=== PATIENT | male | born 1960 | race Caucasian/White ===

== ENCOUNTER 2022-03-20 09:33 | Emergency (ER) | payer SELFPAY ==
[~2022-03-20] VITALS: Ht 170.2 cm; Wt 72.7 kg
[2022-03-20 09:42] VITALS: BP 148/92; TEMP 97.8
[2022-03-20] MEDS ORDERED: PERCOCET 325 MG1 TA2 PO (10:32)
[2022-03-20] MEDS ORDERED: MOTRIN 800800 MG/TAB PO (10:32)
[2022-03-20 10:50] VITALS: PULSE 94
== END 2022-03-20 10:50 | disposition home or self-care (01) ==
LOC: COL.ER 09:33
DX: L72.3 Sebaceous cyst (principal); F17.200 Nicotine dependence, unspecified, uncomplicated; Z28.310 Unvaccinated for COVID-19

== ENCOUNTER 2022-04-04 07:31 | Day surgery (SDC) | payer SELFPAY ==
[~2022-04-04] VITALS: Ht 170.2 cm; Wt 68.6 kg
[~2022-04-04 07:31] MED LIST: MOTRIN 800800 MG/TAB PO; PERCOCET 325 MG1 TA2 PO
[2022-04-04 08:28] VITALS: BP 115/87; PULSE 77; TEMP 98.6
[2022-04-04 10:03] VITALS: BP 138/76; PULSE 68; TEMP 97.5
[2022-04-04 10:20] VITALS: BP 132/74; PULSE 69
[2022-04-04 10:35] VITALS: BP 130/68; PULSE 65
[2022-04-04 10:50] VITALS: BP 136/72; PULSE 64
[2022-04-04 11:05] VITALS: BP 133/77; PULSE 61
--- NOTE | 2022-04-04 19:01 | NUR ---
PT [place] [facility] [facility] [place] S/P LIPOMA EXCISION OF RIGHT UPPER BACK PLACED ON MONITOR, VSS ON RA RECEIVED REPORT AND ASSUMED CARE OF PT FROM [facility] AND NINOSKA S/OGURWINDER AT BEDSIDE A&O, NAD, DENIES COMPLAINT, FOLLOWS COMMANDS. PROVIDED SODA, DECLINES FOOD - WILL EAT UPON DEPARTURE, TOLERATING WELL. 1050 C/O RUE PAIN - 30MG TORADOL IVP, TOLERATED WELL, RELIEVING PAIN TO TOLERABLE LEVEL. PT HAS REMAINED A&O, NAD, VSS ON RA, TOLERATING PO, IS WITHOUT SIGNIFICANT COMPLAINT, WITH STEADY INDEPENDENT GAIT THRU OUT [facility] [place] D/C'D. D/C INSTRUCTIONS, ANY FOLLOW UP REVIEWED AND HANDED TO PT. ALL QUESTIONS AND CONCERNS ADDRESSED TO PT SATISFACTION. TAKEN TO EXIT VIA W/C WITH ALL BELONGINGS AND PAPERWORK IN HAND, ASSISTED INTO PASSENGER SEAT OF [facility]. S/O TO DRIVE HOME.
== END 2022-04-04 11:20 | disposition home or self-care (01) ==
LOC: SDCO 07:31
DX: D17.1 Benign lipomatous neoplasm of skin and subcutaneous tissue of trunk (principal); F17.210 Nicotine dependence, cigarettes, uncomplicated
CPT/HCPCS: J0690; J1885; J2704; J3010; J7120

== ENCOUNTER 2023-09-25 08:57 | Emergency (ER) | payer SELFPAY ==
[~2023-09-25] VITALS: Ht 170.2 cm; Wt 72.7 kg
[2023-09-25 09:08] VITALS: TEMP 98.5
[2023-09-25] MEDS ORDERED: ULTRAM 50MG TAB50 MG PO (09:21)
[2023-09-25] MEDS ORDERED: CLEOCIN HCL300 MG PO (09:34)
[2023-09-25] MEDS ORDERED: cefTRIAXone 1 G in Water For Injection,Sterile 10 ML IV ONE (09:45)
[2023-09-25] MEDS ORDERED: cefTRIAXone 1 G,Lidocaine PF 1% 2.1 ML IM ONE (09:45)
[2023-09-25] MEDS ORDERED: oxyCODONE/Acetaminophen 5-325 MG TAB PO ONE (09:45)
[2023-09-25 10:04] VITALS: BP 177/99; PULSE 72
== END 2023-09-25 10:00 | disposition home or self-care (01) ==
LOC: COL.ER 08:57
DX: K04.7 Periapical abscess without sinus (principal); L03.211 Cellulitis of face
CPT/HCPCS: J0696